=== PATIENT | female | born 1980 | race Caucasian/White ===

== ENCOUNTER 2025-06-12 14:42 | Emergency (ER) | payer MEDICAID ==
[~2025-06-12] VITALS: Ht 172.7 cm; Wt 102.0 kg
[2025-06-12 15:43] VITALS: O2SAT 100
[2025-06-12] MEDS: ACETAMINOPHEN 500MG TABLET PO ONE (19:45)
[2025-06-12] MEDS ORDERED: TOPUD MT (20:25)
[2025-06-12] MEDS ORDERED: AZIT250T12 MT (20:25)
[2025-06-12] MEDS ORDERED: DEXT15LI31 MT (20:25)
[2025-06-12 20:39] VITALS: BP 128/69; PULSE 86; RESP 20; TEMP 37.1; O2SAT 98
[2025-06-12 21:42] LABS: INFLUENZA TYPE A Presumptive Negative (Pres. Neg.)
[2025-06-12 21:43] LABS: INFLUENZA TYPE B Presumptive Negative (Pres. Neg.)
[2025-06-12 21:44] LABS: RESPIRATORY SYNCYTIAL VIRUS Not Detected (Not Detectd)
== END 2025-06-12 20:41 | disposition home or self-care (01) ==
LOC: ER 14:42
DX: J40 Bronchitis, not specified as acute or chronic (principal); R50.9 Fever, unspecified; R05.9 Cough, unspecified; R09.81 Nasal congestion
CPT/HCPCS: 71045; 87420; 87426; 87804; 99284